=== PATIENT | male | born 1945 | race Caucasian/White ===

== ENCOUNTER 2022-01-03 17:22 | Inpatient (IN) | payer BC, MEDICARE, OTHER ==
[2022-01-03 19:02] LABS: #Eosinphils 0.1 10x3/uL (0.0-0.5); #Monocytes 0.8 10x3/uL (0.0-1.1); #Neutrophils 6.7 10x3/uL (1.5-8.4); %Basophils 0.4 % (0.0-2.0); %Eosinophils 1.3 % (0.0-6.0); %Lymphocytes 24.4 % (18.0-47.0); %Monocytes 8.1 % (0.0-10.0); %Neutrophils 65.5 % (40.0-75.0); Hemoglobin 15.5 g/dL (13.5-17.5); Mean Corpuscular HGB CONC 33.1 g/dL (32.0-36.0); Mean Corpuscular Hemoglobin 29.2 pg (27.0-33.0); Mean Corpuscular Volume 88.3 fl (81.2-95.1); Mean Platelet Volume 9.9 fl (7.4-10.4); Platelet Count 208 10x3/uL (150-450); RBC Distribution Width 12.7 % (11.5-14.5); White Blood Cell (WBC) Count 10.2 10x3/uL (3.5-10.5)
[2022-01-03 19:10] LABS: PTT 25.9 sec (22.0-33.0); Prothrombin Time 10.8 sec (9.5-12.1)
[2022-01-03 19:11] LABS: ALT (SGPT) 58 U/L (8-55); AST (SGOT) 24 U/L (5-34); Albumin 3.9 g/dL (3.4-4.8); Alkaline Phosphatase 77 U/L (40-110); Anion Gap 14 mmol/L (10-20); BUN (Urea Nitrogen) 20 mg/dL (8.4-25.7); Bilirubin, Total 0.3 mg/dL (0.2-1.2); Calc. Creatinine Clearance 0 mL/min (70-130); Calcium 9.5 mg/dL (7.8-10.44); Carbon Dioxide 23 mmol/L (23-31); Chloride 105 mmol/L (98-107); Estimated GFR 80; Globulin 3.5 g/dL (2.4-3.5); Glucose 108 mg/dL (83-110); Potassium 3.8 mmol/L (3.5-5.1); Protein, Total 7.4 g/dL (5.8-8.1); Sodium 138 mmol/L (136-145)
[2022-01-03] MEDS ORDERED: Calcium Carbonate 500 MG ChewTAB PO PRN (21:56)
[2022-01-03] MEDS ORDERED: Acetaminophen 325 MG TAB PO PRN (21:56)
[2022-01-03] MEDS ORDERED: Dextrose 50% Abboject 50 ML SYRINGE SLOW IVP PRN (21:56)
[2022-01-03] MEDS ORDERED: HumaLOG 300 UNITS/3 ML VIAL SC PRN (21:56)
[2022-01-03] MEDS ORDERED: Ondansetron PF 4 MG/2 ML Vial IVP PRN (21:56)
[2022-01-03] MEDS ORDERED: Dextrose 5% in Water 1,000 ML IV PRN (21:56)
[2022-01-03] MEDS ORDERED: Senokot S 8.6-50 MG TAB PO PRN (21:56)
[2022-01-03] MEDS ORDERED: Guaifenesin DM 100-10/5 ML UDCUP PO PRN (21:56)
[2022-01-03] MEDS ORDERED: Sodium Chloride 0.9% 500 ML IV SCH (22:00)
[2022-01-03] MEDS ORDERED: metFORMIN 500 MG TAB ONE (23:01)
[2022-01-03] MEDS ORDERED: Atorvastatin Calcium 40 MG TAB PO SCH (23:15)
[2022-01-03] MEDS ORDERED: Atorvastatin Calcium 40 MG TAB ONE (23:36)
[2022-01-03 23:43] LABS: SARS-CoV-2 NAA Rapid Test Not Detected (NotDetected)
[2022-01-03 23:59] VITALS: BMI 35.9
[2022-01-04] MEDS ORDERED: Potassium Chloride 20 MEQ TAB PO SCH (01:00)
[2022-01-04 05:21] LABS: Anion Gap 13 mmol/L (10-20); BUN (Urea Nitrogen) 20 mg/dL (8.4-25.7); Calc. Creatinine Clearance 118 mL/min (70-130); Calcium 9.2 mg/dL (7.8-10.44); Carbon Dioxide 23 mmol/L (23-31); Chloride 106 mmol/L (98-107); Cholesterol 139 mg/dl (< 200 Desired); Estimated GFR 89; Glucose 92 mg/dL (83-110); HDL Cholesterol 28 mg/dL (>60 Neg Risk); LDL Cholesterol, Calculated 76 mg/dL; Potassium 3.7 mmol/L (3.5-5.1); Sodium 138 mmol/L (136-145); Triglycerides 173 mg/dL (Less than 150)
[2022-01-04] MEDS: Alogliptin 6.25 MG TAB PO SCH (09:02)
[2022-01-04] MEDS: metFORMIN 500 MG TAB PO SCH ×2 (09:03→18:42)
[2022-01-04] MEDS: Empagliflozin 10 MG TAB PO SCH (09:03)
[2022-01-04] MEDS: Aspirin 81 mg Enteric Coated Tablet PO SCH (09:03)
[2022-01-04] MEDS: Metoprolol Tartrate 25 MG TAB PO SCH ×2 (09:03→20:44)
[2022-01-04] MEDS: Enoxaparin Sodium 40 MG/0.4 ML SYRINGE SC SCH (09:04)
[2022-01-04] MEDS ORDERED: Magnevist 469MG/ML 20 ML VIAL ONE (13:22)
[2022-01-04] MEDS ORDERED: Atorvastatin Calcium 40 MG TAB PO SCH (21:00)
[2022-01-05] MEDS: Metoprolol Tartrate 25 MG TAB PO SCH (07:54)
[2022-01-05] MEDS: Alogliptin 6.25 MG TAB PO SCH (07:55)
[2022-01-05] MEDS: metFORMIN 500 MG TAB PO SCH (07:55)
[2022-01-05] MEDS: Empagliflozin 10 MG TAB PO SCH (07:55)
[2022-01-05] MEDS: Aspirin 81 mg Enteric Coated Tablet PO SCH (07:55)
[2022-01-05] MEDS: Enoxaparin Sodium 40 MG/0.4 ML SYRINGE SC SCH (07:56)
[2022-01-05 08:00] VITALS: BP 158/75; TEMP 96.9
== END 2022-01-05 10:45 | disposition home or self-care (01) | DRG 64 ==
LOC: CSHERS 17:22 → CSHTELE 23:49 → OBSVTOIN 01-05 08:59
PROVIDERS: ADMIT Student in an Organized Health Care Education/Training Program; ATTEND Internal Medicine
PROC: 5A09357 Assistance with Respiratory Ventilation, Less than 24 Consecutive Hours, Continuous Positive Airway Pressure (ICD-10-PCS; principal; 2022-01-05)
DX: I63.9 Cerebral infarction, unspecified (principal); G93.41 Metabolic encephalopathy; I10 Essential (primary) hypertension; E78.5 Hyperlipidemia, unspecified; E11.9 Type 2 diabetes mellitus without complications; G47.33 Obstructive sleep apnea (adult) (pediatric); I49.8 Other specified cardiac arrhythmias; E66.9 Obesity, unspecified; Z20.822 Contact with and (suspected) exposure to COVID-19; E87.5 Hyperkalemia; Z68.36 Body mass index [BMI] 36.0-36.9, adult; Z87.891 Personal history of nicotine dependence; Z90.49 Acquired absence of other specified parts of digestive tract; Z98.890 Other specified postprocedural states; Z88.5 Allergy status to narcotic agent
CPT/HCPCS: 36415; 36416; 70450; 70553; 80048; 80053; 80061; 83036; 83735; 84443; 85025; 85610; 85730; 93005; 93306; 93880; 96372; A9579; G0378; J1650; J1815; U0002

== ENCOUNTER 2024-06-18 13:41 | Emergency (ER) | payer MEDICARE, OTHER ==
[2024-06-18 15:02] LABS: #Basophils 0.06 10x3/uL (0.0-0.2); #Eosinophils 0.25 10x3/uL (0.0-0.5); #Monocytes 0.84 10x3/uL (0.0-1.1); #Neutrophils 6.75 10x3/uL (1.5-8.4); %Basophils 0.6 % (0.0-2.0); %Eosinophils 2.5 % (0.0-6.0); %Lymphocytes 21.4 % (18.0-47.0); %Monocytes 8.3 % (0.0-10.0); %Neutrophils 66.9 % (40.0-75.0); Hematocrit 48.7 % (38.8-50.0); Mean Corpuscular HGB CONC 32.9 g/dL (32.0-36.0); Mean Corpuscular Hemoglobin 28.1 pg (27.0-33.0); Mean Corpuscular Volume 85.4 fL (81.2-95.1); Mean Platelet Volume 9.8 fL (7.4-10.4); Platelet Count 284 10x3/uL (150-450); White Blood Cell (WBC) Count 10.1 10x3/uL (3.5-10.5)
[2024-06-18 15:21] LABS: ALT (SGPT) 55 U/L (8-55); AST (SGOT) 25 U/L (5-34); Albumin 3.7 g/dL (3.4-4.8); Alkaline Phosphatase 108 U/L (40-110); Anion Gap 13 mmol/L (10-20); BUN (Urea Nitrogen) 17 mg/dL (8.4-25.7); Bilirubin, Total 0.4 mg/dL (0.2-1.2); Calc. Creatinine Clearance 0 mL/min (70-130); Calcium 9.8 mg/dL (7.8-10.44); Carbon Dioxide 24 mmol/L (23-31); Chloride 106 mmol/L (98-107); Estimated GFR 76; Globulin 4.3 g/dL (2.4-3.5); Glucose 128 mg/dL (83-110); Potassium 4.1 mmol/L (3.5-5.1); Sodium 139 mmol/L (136-145)
[2024-06-18] MEDS ORDERED: Dexamethasone 4 MG TAB ONE (16:45)
== END 2024-06-18 16:35 | disposition home or self-care (01) ==
LOC: CSHERS 13:41
DX: R05.9 Cough, unspecified (principal); I10 Essential (primary) hypertension; J45.909 Unspecified asthma, uncomplicated; E11.9 Type 2 diabetes mellitus without complications; E78.5 Hyperlipidemia, unspecified; Z79.82 Long term (current) use of aspirin; Z79.84 Long term (current) use of oral hypoglycemic drugs; Z79.899 Other long term (current) drug therapy; Z86.73 Personal history of transient ischemic attack (TIA), and cerebral infarction without residual deficits
CPT/HCPCS: 71045; 80053; 85025; 87428; 93005; J8540

== ENCOUNTER 2025-01-28 13:36 | Outpatient (CLI) | payer MEDICARE | END 2025-01-28 13:37 | disposition home or self-care (01) | LOC: CSHULT 13:36 | PROVIDERS: ATTEND Family Medicine | DX: R60.0 Localized edema (principal) ==

== ENCOUNTER 2025-03-18 12:57 | Emergency (ER) | payer MEDICARE, OTHER ==
[2025-03-18 13:44] LABS: #Basophils 0.03 10x3/uL (0.0-0.2); #Eosinophils 0.19 10x3/uL (0.0-0.5); #Monocytes 0.76 10x3/uL (0.0-1.1); #Neutrophils 5.53 10x3/uL (1.5-8.4); %Basophils 0.4 % (0.0-2.0); %Eosinophils 2.2 % (0.0-6.0); %Lymphocytes 23.5 % (18.0-47.0); %Monocytes 8.9 % (0.0-10.0); %Neutrophils 64.6 % (40.0-75.0); Hematocrit 45.7 % (38.8-50.0); Hemoglobin 15.4 g/dL (13.5-17.5); Mean Corpuscular Hemoglobin 28.9 pg (27.0-33.0); Mean Corpuscular Volume 85.9 fL (81.2-95.1); Platelet Count 237 10x3/uL (150-450); Red Blood Cell (RBC) Count 5.32 10x6/uL (4.32-5.72); White Blood Cell (WBC) Count 8.55 10x3/uL (3.5-10.5)
[2025-03-18 14:21] LABS: ALT (SGPT) 47 U/L (Less than 45); AST (SGOT) 22 U/L (11-34); Albumin 3.6 g/dL (3.1-4.5); Alkaline Phosphatase 86 U/L (40-110); Anion Gap 16 mmol/L (10-20); BUN (Urea Nitrogen) 33 mg/dL (8.4-25.7); Bilirubin, Total 0.4 mg/dL (0.3-1.2); Calc. Creatinine Clearance 0 mL/min (70-130); Calcium 9.1 mg/dL (7.8-10.44); Carbon Dioxide 22 mmol/L (23-31); Chloride 104 mmol/L (98-107); Globulin 3.2 g/dL (2.4-3.5); Glucose 192 mg/dL (83-110); Potassium 4.8 mmol/L (3.5-5.1); Sodium 137 mmol/L (136-145)
[2025-03-18 14:25] LABS: Troponin I 0.010 ng/mL (< 0.028)
== END 2025-03-18 14:40 | disposition home or self-care (01) ==
LOC: CSHERS 12:57
DX: R00.1 Bradycardia, unspecified (principal); R00.8 Other abnormalities of heart beat; E66.01 Morbid (severe) obesity due to excess calories; E11.9 Type 2 diabetes mellitus without complications; I10 Essential (primary) hypertension; Z79.899 Other long term (current) drug therapy; Z79.84 Long term (current) use of oral hypoglycemic drugs; Z79.82 Long term (current) use of aspirin
CPT/HCPCS: 36415; 80053; 83880; 84443; 84484; 85025; 93005; 99284